=== PATIENT | male | born 1965 | race Caucasian/White ===

== ENCOUNTER 2016-11-30 09:08 | Day surgery (SDC) | payer BC ==
[~2016-11-30 09:08] MED LIST: ACETAMINOPHEN 500 MG TABLET PO PRN; HYDROmorphone HCL 2 MG/ML VIAL IV PRN; MAG HYDROX/ALUMINUM HYD/SIMETH 30 ML UDC PO PRN; MAGNESIUM HYDROXIDE 30 ML UDC PO PRN; ONDANSETRON HCL/PF 2 MG/ML VIAL IV PRN; PROMETHAZINE HCL 25 MG in DEXTROSE 5 % IN WATER 50 ML IV PRN; RINGER'S SOLUTION,LACTATED 1,000 ML IV PRN; ZOLPIDEM TARTRATE 5 MG TABLET PO PRN; ceFAZolin SODIUM 1 GM VIAL IV PRN; diphenhydrAMINE HCL 50 MG/ML VIAL IV PRN; oxyCODONE HCL/ACETAMINOPHEN 1 TAB TABLET PO PRN
[2016-11-30] MEDS ORDERED: RINGER'S SOLUTION,LACTATED 1,000 ML IV ONE (09:48)
[2016-11-30] MEDS ORDERED: BUPIVACAINE HCL/EPINEPHRINE 50 ML VIAL IJ ONE ×2 (11:20)
[2016-11-30 13:40] VITALS: BP 137/89
[2016-11-30] MEDS ORDERED: SENNOSIDES/DOCUSATE SODIUM 1 TAB TABLET PO SCH (21:00)
== END 2016-11-30 09:09 | disposition home or self-care (01) ==
LOC: AMB 09:08
PROVIDERS: ATTEND Orthopaedic Surgery
PROC: 0JBR0ZZ Excision of Left Foot Subcutaneous Tissue and Fascia, Open Approach (ICD-10-PCS; 2016-11-30)
PROC: 0QBM0ZX Excision of Left Tarsal, Open Approach, Diagnostic (ICD-10-PCS; principal; 2016-11-30 10:45)
DX: M86.8X7 Other osteomyelitis, ankle and foot (principal); S91.332S Puncture wound without foreign body, left foot, sequela; I10 Essential (primary) hypertension; E66.9 Obesity, unspecified; Z68.34 Body mass index [BMI] 34.0-34.9, adult

== ENCOUNTER 2017-02-10 09:30 | Day surgery (SDC) | payer BC ==
--- NOTE | 2017-02-10 10:08 | OR ---
Anesthesia Pre Procedure Eval Date of Service: 02/10/17 Pre Procedure Evaluation: Last Vital Signs Temp 36.3 C L 02/10/17 09:34 Pulse 84 02/10/17 09:34 Resp 16 02/10/17 09:34 BP 157/103 02/10/17 09:34 Pulse Ox 98 02/10/17 09:34 Anesthesia Pre Procedure Evaluation DATE: 02/10/2017 TIME: 10 AM INDICATIONS: Disc height loss with spinal stenosis, back and left radicular pain PAST MEDICAL HISTORY: Mr. Ghosh has had a long history of radicular pain however it's generally been controlled with activity and [id number] medications. As of about 4 months ago Mr. Ghosh experienced a nail into his foot causing the immediate pain in the foot however as the treatment for his resultant osteomyelitis continued, his radicular pain increased in intensity. His osteomyelitis is now resolved and the intensity of the radicular pain continues and increases. History of GERD: No History of smoking: No History of sleep apnea: No EXAM: Heart regular; lungs clear ASSESSMENT OF MEDICAL STATUS: Appropriate candidate for lumbar epidural injection. His symptoms are exacerbated particularly on sitting however he does not appear to have a sacral pathology. His pain does extend down the leg and into the big toe and second toe area, indicating an L4 5 pathology. PLANNED PROCEDURE: Lumbar epidural steroid injection Home Medications: HOME MEDICATIONS Acetaminophen [Tylenol Arthritis] 1,300 mg PO Q8H 11/29/16 [Last Taken 11/30/16 08:00] Ibuprofen 1,000 mg PO QID 11/29/16 [Last Taken 11/29/16] Lisinopril [Zestril] 40 mg PO DAILY 11/29/16 [Last Taken 02/10/17 08:00] Cyclobenzaprine HCl [Flexeril] 10 mg PO TID PRN 02/09/17 [Last Taken Unknown]
[2017-02-10] MEDS ORDERED: LIDOCAINE HCL/PF 5 ML VIAL IJ ONE (10:40)
[2017-02-10] MEDS ORDERED: IOPAMIDOL 20 ML VIAL IJ ONE (10:40)
[2017-02-10] MEDS ORDERED: DEXAMETHASONE SOD PHOSPHATE 10 MG/ML VIAL IJ ONE (10:40)
--- NOTE | 2017-02-10 10:54 | OR ---
Anesthesia Procedure Note - Anesthesia Procedure Note Date of Service: 02/10/17 Narrative: Vital Signs - Last Taken Temp 36.3 C L 02/10/17 09:34 Pulse 86 02/10/17 10:44 Resp 16 02/10/17 10:44 BP 170/116 02/10/17 10:44 Pulse Ox 95 02/10/17 10:44 O2 Oxygen Delivery Method Room Air 02/10/17 10:49 ANESTHESIA PROCEDURE NOTE Date of Procedure: 02/10/2017 Time of procedure: 1020. Performed by: Karthik Rebollar CRNA, SYSTEM OPERATOR, MSN Superintendent Measurement: Steffany Jacob RN. Preprocedure diagnosis: Spinal stenosis, low back and left radicular pain. Post procedure diagnosis: Same. Procedure: Epidural Steroid Injection L4 5 left. Indications: Left radicular pain. Findings: See below. Details of the procedure: After the MRI report and films were reviewed, the patient was interviewed where risks and the procedure were explained. The patient was then brought to or 3 and was placed in the prone position. The back was prepped with DuraPrep and draped in a sterile fashion. The [] area was identified under fluoroscopy and the L4 5 left space was localized with 1% lidocaine solution. There was some difficulty on the approach as he occasionally had pain and paresthesia type responses even while in the ligamentum area. After several readjustments of the needle a new injection site was localized at the L4 5 level left and the approach was without incident. The epidural space was identified using loss of resistance technique using a #20-gauge Touhy needle. 1 mL of Isovue was injected while the C-arm was positioned in the lateral orientation. The C-arm was then readjusted to an AP view and Isovue 200 1 milliliters was injected demonstrating a spread at the affected area. Dexamethasone 10mg and lidocaine 1% 5 mL was injected, stylette was replaced and the epidural needle removed. A Band-Aid was then applied to the injection site, patient was placed in a following position for 5 minutes then returned to ASU with good relief of pain, from a 5/10 to 0/10. EBL: None. Energy: 28 Seconds, 18.84 mGy Fluids: N/A. Specimen: N/A. Post procedure condition: The patient tolerated the procedure well. No complications were noted. Thank you for this consultation. Karthik Rebollar LIZZY, MSN, SYSTEM OPERATOR
[2017-02-10 11:21] VITALS: BP 152/105
== END 2017-02-10 09:31 | disposition home or self-care (01) ==
LOC: AMB 09:30
PROVIDERS: ATTEND Orthopaedic Surgery
PROC: 3E0R33Z Introduction of Anti-inflammatory into Spinal Canal, Percutaneous Approach (ICD-10-PCS; 2017-02-10)
PROC: B01BZZZ Fluoroscopy of Spinal Cord (ICD-10-PCS; 2017-02-10)
PROC: 3E0R3BZ Introduction of Anesthetic Agent into Spinal Canal, Percutaneous Approach (ICD-10-PCS; principal; 2017-02-10 10:40)
DX: M48.061 Spinal stenosis, lumbar region without neurogenic claudication (principal)